=== PATIENT | female | born 1995 | race African-American/Black ===

== ENCOUNTER 2017-11-09 13:08 | Emergency (ER) | payer SELFPAY ==
[~2017-11-09] VITALS: Ht 167.6 cm; Wt 72.5 kg
[2017-11-09 13:28] VITALS: BP 157/102; PULSE 82; RESP 16; TEMP 98.6; O2SAT 100
--- NOTE | 2017-11-09 16:15 | PD ---
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 Patient reports that she had her menstrual cycle on the 10th this month lasting about 4 days. Patient states it went away and then came back again and ended about 4 days ago. Patient uncertain the exact timeframe between when menstrual cycle stopped and then re-began. Patient complaining of cramping in the lower abdomen similar to menstrual cramps radiates to her back. Patient has been ongoing since her second period restarting the second time. Patient also also noticed a yellowish discharge. Patient got concerned when she Googled her symptoms and was concerned she may have been miscarrying. Denies any dysuria, chest pain, shortness breath, fevers, loss change from bowel, or other concerns. Patient denies doing anything for this prior to coming to emergency department. Denies anything making symptoms better or worse. Patient reports she is sexually active with one partner and denies them having any symptoms. Severity mild. [facility] Past Medical History Medical History: Denies Significant Hx ?: Unknown LMP: 10/19/2017 Past Surgical History Surgical History: No Previous Surgery Social History Alcohol Use: No Tobacco Use: Yes Substance Use: Yes (weed ) Allergies-Medications (Allergen,Severity, Reaction): Coded Allergies: No Known Allergies (Unverified , 11/09/17) Reported Meds & Prescriptions Reported Meds & Active Scripts Active No Active Prescriptions or Reported Medications Review of Systems Except as stated in HPI: all other systems reviewed are Neg Physical Exam Narrative GENERAL: Well-developed, overly nourished, in no acute distress, and non-ill appearing. SKIN: Focused skin assessment warm and dry. HEAD: Atraumatic. Normocephalic. EYES: Pupils equal and round. EOMI. No scleral icterus. No injection or drainage. ENT: No nasal bleeding or discharge. Mucous membranes pink and moist. NECK: Trachea midline. Supple. No nuclear rigidity. CARDIOVASCULAR: Regular rate and rhythm. No murmur appreciated. RESPIRATORY: No accessory muscle use. No respiratory distress. Clear to auscultation. Breath sounds equal bilaterally. GASTROINTESTINAL: Abdomen soft, nondistended, and no guarding. Hepatic and splenic margins not palpable. Normal bowel sounds x4. No pulsatile mass. Patient reports tenderness palpation suprapubic area. No CVA tenderness. GENITOURINARY: Normal external genitalia without lesions or erythema. Vaginal vault without blood or drainage. Cervical os was closed without drainage. No cervical motion tenderness. Uterus nontender and nonenlarged. Bilateral adnexa nontender without masses. MUSCULOSKELETAL: No obvious deformities. No clubbing. No cyanosis. No edema. Full range of motion. NEUROLOGICAL: Awake and alert. No obvious cranial nerve deficits. Motor grossly within normal limits. Normal speech. PSYCHIATRIC: Appropriate mood and affect; insight and judgment normal. Data Data Last Documented VS Vital Signs Date Time Temp Pulse Resp B/P (MAP) Pulse Ox O2 Delivery O2 Flow Rate FiO2 11/09/17 13:28 98.6 82 16 157/102 (120) 100 Orders Orders Urinalysis - C+S If Indicated (11/09/17 15:09) Ed Urine Pregnancytest Poc (11/09/17 15:09) Complete Blood Count With Diff (11/09/17 16:12) Comprehensive Metabolic Panel (11/09/17 16:12) Gc And Chlamydia Pcr (11/09/17 16:12) Wet Prep Profile (11/09/17 16:12) Ed Discharge Order (11/09/17 19:05) Labs Laboratory Tests Test 11/09/17 16:30 11/09/17 16:45 11/09/17 17:45 White Blood Count 6.7 TH/MM3 Red Blood Count 5.37 MIL/MM3 Hemoglobin 12.0 GM/DL Hematocrit 37.0 % Mean Corpuscular Volume 68.9 FL Mean Corpuscular Hemoglobin 22.4 PG Mean Corpuscular Hemoglobin Concent 32.6 % Red Cell Distribution Width 17.1 % Platelet Count 226 TH/MM3 Mean Platelet Volume 10.3 FL Neutrophils (%) (Auto) 52.6 % Lymphocytes (%) (Auto) 37.1 % Monocytes (%) (Auto) 7.7 % Eosinophils (%) (Auto) 2.1 % Basophils (%) (Auto) 0.5 % Neutrophils # (Auto) 3.5 TH/MM3 Lymphocytes # (Auto) 2.5 TH/MM3 Monocytes # (Auto) 0.5 TH/MM3 Eosinophils # (Auto) 0.1 TH/MM3 Basophils # (Auto) 0.0 TH/MM3 CBC Comment DIFF FINAL Differential Comment Blood Urea Nitrogen 9 MG/DL Creatinine 0.76 MG/DL Random Glucose 75 MG/DL Total Protein 7.6 GM/DL Albumin 3.6 GM/DL Calcium Level 8.7 MG/DL Alkaline Phosphatase 75 U/L Aspartate Amino Transf (AST/SGOT) 13 U/L Alanine Aminotransferase (ALT/SGPT) 18 U/L Total Bilirubin 0.4 MG/DL Sodium Level 142 MEQ/L Potassium Level 3.7 MEQ/L Chloride Level 107 MEQ/L Carbon Dioxide Level 27.3 MEQ/L Anion Gap 8 MEQ/L Estimat Glomerular Filtration Rate 114 ML/MIN Clue Cells (Wet Prep) NONE SEEN Vaginal Trichomonas (Wet Prep) NONE SEEN Vaginal Yeast (Wet Prep) NONE SEEN Urine Color YELLOW Urine Turbidity HAZY Urine pH 5.5 Urine Specific [place] 1.029 Urine Protein TRACE mg/dL Urine Glucose (UA) NEG mg/dL Urine Ketones TRACE mg/dL Urine Occult Blood NEG Urine Nitrite NEG Urine Bilirubin NEG Urine Urobilinogen 2.0 MG/DL Urine Leukocyte Esterase SMALL Urine RBC 2 /hpf Urine WBC 3 /hpf Urine Squamous Epithelial Cells 2 /hpf Urine Bacteria OCC /hpf Urine Mucus MANY /lpf Microscopic Urinalysis Comment CULT NOT INDICATED MDM Medical Decision Making Medical Screen Exam Complete: Yes Emergency Medical Condition: Yes Differential Diagnosis UTI, STD, PID, cervicitis, DUB, metabolic disturbance Narrative Course The patient presented with lower abdominal/pelvic pain and the patient was accordingly mildly tender. The patient otherwise appeared comfortable and hydrated. Urine analysis revealed evidence of UTI. There was no evidence of pyelonephritis, cervicitis or PID. Evaluation revealed no clinical evidence or picture of acute ovarian torsion at this time. The patient appears comfortable and no distress and no vomiting. The patient is to return if worsens, pain worsens or changes, worsening back pain, develop persistent fever, inability to tolerate fluids with or without vomiting, unable to establish follow up or as needed. There was no evidence of an acute, surgical abdomen at this time. There was no clinical evidence to support cholecystitis/cholelithiasis, pancreatitis, perforation of gastric ulcer, colitis, diverticulitis, obstruction, volvulus, early appendicitis, abdominal or femoral herniation or hernial incarceration or strangulation at this time. There was no evidence to support vascular pathology such as AAA, mesenteric ischemia. There was also no clinical evidence by history , exam or risk factors to suggest atypical presentation of cardiac disease such as ACS, AMI or atypical angina. The patient agreed with plan of care and management. The patient was instructed to follow up with their physician. Patient in no obvious distress upon re-evaluation. All pertinent laboratory result(s) discussed with patient with exception of gonorrhea and chlamydia that are pending at time of discharge. Any questions/concerns in reference to patient diagnosis/condition discussed and clarified prior to patient's discharge. Reinforced sheer importance of close follow up with patient's primary physician or primary care clinic and/or [facility] [employer]ER. Instructed patient to return to ED immediately, if symptoms return/worsen. Patient showed understanding of above instructions. Further instructions and recommendations were detailed in discharge paperwork. Patient ambulated without difficulty out of ED at discharge. Diagnosis Primary Impression: Irregular menstrual cycle Referrals: [facility] Patient Instructions: Dysfunctional Uterine Bleeding (ED), General Instructions Additional Instructions: Follow-up with your primary care physician and/or rehab technician next week for reevaluation. Return to the emergency department if symptoms get worse. Scripts No Active Prescriptions or Reported Meds Disposition: 01 DISCHARGE HOME Condition: Stable Darin Monaco November 09, 2017 16:15
[2017-11-09 16:58] LABS: AUTOMATED NEUTROPHIL # 3.5 TH/MM3 (1.8-7.7); BASOPHIL % 0.5 % (0.0-2.0); EOSINOPHIL # 0.1 TH/MM3 (0-0.4); EOSINOPHIL % 2.1 % (0.0-4.0); LYMPH % 37.1 % (9.0-44.0); LYMPHOCYTE # 2.5 TH/MM3 (1.0-4.8); MEAN CELL VOLUME 68.9 FL (80.0-100.0); MEAN CORPUSCULAR HEMOGLOBIN 22.4 PG (27.0-34.0); MEAN CORPUSCULAR HGB CONC 32.6 % (32.0-36.0); MEAN PLATELET VOLUME 10.3 FL (7.0-11.0); MONO % 7.7 % (0.0-8.0); MONOCYTE # 0.5 TH/MM3 (0-0.9); NEUT % 52.6 % (16.0-70.0); PLATELET COUNT 226 TH/MM3 (150-450); RED BLOOD COUNT 5.37 MIL/MM3 (4.00-5.30); RED CELL DISTRIBUTION WIDTH 17.1 % (11.6-17.2); WHITE BLOOD COUNT 6.7 TH/MM3 (4.0-11.0)
[2017-11-09 17:16] LABS: ALBUMIN 3.6 GM/DL (3.4-5.0); ALT (GPT) 18 U/L (10-53); AST (GOT) 13 U/L (15-37); BICARBONATE 27.3 MEQ/L (21.0-32.0); BLOOD UREA NITROGEN 9 MG/DL (7-18); CALCIUM 8.7 MG/DL (8.5-10.1); CHLORIDE 107 MEQ/L (98-107); CREATININE 0.76 MG/DL (0.50-1.00); GLOMERULAR FILTRATION RATE 114 ML/MIN (>89); GLUCOSE,RANDOM 75 MG/DL (74-106); SODIUM (NA) 142 MEQ/L (136-145)
[2017-11-09 17:18] LABS: ALKALINE PHOSPHATASE 75 U/L (45-117); TOTAL BILIRUBIN ADULT 0.4 MG/DL (0.2-1.0); TOTAL PROTEIN 7.6 GM/DL (6.4-8.2)
[2017-11-09 18:39] LABS: BACTERIA, URINE OCC /hpf; BILIRUBIN, URINE NEG (NEG); BLOOD, URINE NEG (NEG); GLUCOSE,URINE NEG (NEG); KETONE, URINE TRACE mg/dL (NEG); MUCUS URINE MANY /lpf (OCC); NITRITE,URINE NEG (NEG); PH, URINE 5.5 (5.0-8.5); SQUAMOUS EPITHELIAL CELL URINE 2 /hpf (0-5); URINE COLOR YELLOW (YELLW/STRAW); URINE LEUKOCYTE ESTERASE SMALL (NEG)
== END 2017-11-09 19:21 | disposition home or self-care (01) ==
LOC: NEPE 13:08
DX: N92.6 Irregular menstruation, unspecified (principal); F12.90 Cannabis use, unspecified, uncomplicated; Z72.0 Tobacco use
CPT/HCPCS: 80053; 81001; 84703; 85025; 87210; 87491; 87591; 99283